=== PATIENT | male | born 1995 | race Caucasian/White ===

== ENCOUNTER 2022-08-18 12:18 | Emergency (ER) | payer BC ==
[2022-08-18] MEDS ORDERED: LIDOCAINE 1% 20 ML MDV ONE (13:10)
[2022-08-18] MEDS ORDERED: LORazepam 2 MG/ML VIAL ONE (14:22)
--- NOTE | 2022-08-18 15:01 | ER ---
Nurse's Notes [facility] Name: Tariq Michel Age: 27 yrs Sex: Male : 1995 Arrival Date: 08/18/2022 Time: 12:20 Bed 11 Private MD: Diagnosis: Cutaneous laceration of the right hand Presentation: 08/18 12:47 Chief complaint: Patient states: laceration to right hand, dressing noted to right aa5 hand. pt states "it was a piece of metal that I was throwing away and it got me". Coronavirus screen: At this time, the client does not indicate any symptoms associated with coronavirus-19. Ebola Screen: Patient denies travel to an Ebola-affected area in the 21 days before illness onset. Complicating Factors: There are no complicating factors for this patient. Initial Sepsis Screen: Does the patient meet any 2 criteria? No. Patient's initial sepsis screen is negative. Does the patient have a suspected source of infection? No. Patient's initial sepsis screen is negative. Risk Assessment: Do you want to hurt yourself or someone else? Patient reports no desire to harm self or others. Onset of symptoms was August 18, 2022. 12:47 Acuity: CHANO 4 aa5 12:47 Method Of Arrival: Ambulatory aa5 Historical: - Allergies: 12:48 No Known Allergies; aa5 - PMHx: 12:48 Asthma; aa5 - PSHx: 12:48 FB removed from throat; aa5 - Immunization history:: Last tetanus immunization: unknown. - Social history:: Smoking status: Patient denies any tobacco usage or history of. Vital Signs: 12:47 BP 132 / 80; Pulse 66; Resp 18 S; Temp 97.7(TE); Pulse Ox 99% on R/A; Weight 124.74 kg aa5 (R); Height 6 ft. 0 in. (182.88 cm) (R); 12:47 Body Mass Index 37.30 (124.74 kg, 182.88 cm) aa5 ED Course: 12:20 Patient arrived in ED. rg4 12:25 Kosta Diaz PA is PHCP. milo 12:25 Vinod Falk DO is Attending Physician. jmm 12:47 Arm band placed on. aa5 12:48 Triage completed. aa5 13:03 Temitope Hong, RN is Primary Nurse. iw Administered Medications: 14:15 CANCELLED (Physician Discretion): HYDROcodone-acetaminophen 5 mg-325 mg 1 tabs PO once iw 14:21 Drug: Ativan (LORazepam) 1 mg Route: IM; Site: left deltoid; iw 16:04 Drug: Doxycycline 100 mg Route: PO; iw 16:27 Drug: HYDROcodone-acetaminophen 5 mg-325 mg 1 tabs Route: PO; iw Outcome: 15:00 Discharge ordered by . milo 16:27 Patient left the ED. iw Signatures: Kosta Diaz PA PA jmm Williams, Irene, RN RN Beronica Zhu RN RN Karina Martel 4 Corrections: (The following items were deleted from the chart) 12:52 12:47 Pulse 66bpm; Resp 18bpm; Spontaneous; Pulse Ox 99% RA; Temp 97.7F Temporal; aa5 124.74 kg Reported; Height 6 ft. 0 in. Reported; BMI: 37.3; aa5
--- NOTE | 2022-08-18 15:01 | EDPHYS ---
[facility] Name: Tariq Michel Age: 27 yrs Sex: Male : 1995 Arrival Date: 08/18/2022 Time: 12:20 Bed 11 Private MD: ED Physician Vinod Falk Historical: - Allergies: 08/18 12:48 No Known Allergies; aa5 - PMHx: 12:48 Asthma; aa5 - PSHx: 12:48 FB removed from throat; aa5 - Immunization history:: Last tetanus immunization: unknown. - Social history:: Smoking status: Patient denies any tobacco usage or history of. Vital Signs: 12:47 BP 132 / 80; Pulse 66; Resp 18 S; Temp 97.7(TE); Pulse Ox 99% on R/A; Weight 124.74 kg aa5 (R); Height 6 ft. 0 in. (182.88 cm) (R); 12:47 Body Mass Index 37.30 (124.74 kg, 182.88 cm) aa5 Laceration: 14:57 Wound Repair of 5cm ( 2.0in ) subcutaneous laceration to right hand. Distal jmm neuro/vascular/tendon intact. Anesthesia: Local anesthetic administered with 8 mls of 1% lidocaine. Wound prep: Simple cleansing with hibiclenz by ia. Skin closed with 9 4-0 Prolene using simple sutures and sterile technique. Patient tolerated well. MDM: 12:38 Patient medically screened. m 14:58 Differential diagnosis: laceration of the hand. Data reviewed: vital signs, nurses jmm notes. Counseling: I had a detailed discussion with the patient and/or guardian regarding: the historical points, exam findings, and any diagnostic results supporting the discharge/admit diagnosis, the need for outpatient follow up, to return to the emergency department if symptoms worsen or persist or if there are any questions or concerns that arise at home. ED course: patient given wound infection return precautions. patient understood and agrees with the plan of care. . Administered Medications: 14:15 CANCELLED (Physician Discretion): HYDROcodone-acetaminophen 5 mg-325 mg 1 tabs PO once iw 14:21 Drug: Ativan (LORazepam) 1 mg Route: IM; Site: left deltoid; iw 16:04 Drug: Doxycycline 100 mg Route: PO; iw 16:27 Drug: HYDROcodone-acetaminophen 5 mg-325 mg 1 tabs Route: PO; iw Disposition Summary: 08/18/22 15:00 Discharge Ordered Location: Home [facility] Condition: Stable [facility] Diagnosis - Cutaneous laceration of the right hand [facility] Followup: jmm - With: Private Physician - When: 10 - 14 days - Reason: Recheck today's complaints, Continuance of care, Re-evaluation by your physician Discharge Instructions: - Discharge Summary Sheet [facility] - Laceration Care, Adult [facility] Forms: - Work release form [facility] - Medication Reconciliation Form [facility] - Thank You Letter [facility] - Antibiotic Education [facility] - Prescription Opioid Use [facility] Prescriptions: - Doxycycline Hyclate 100 mg Oral Tablet - take 1 tablet by ORAL route every 12 hours; 20 tablet; Refills: 0, Product [facility] Selection Permitted - Diclofenac Sodium 75 mg Oral Tablet Sustained Release - take 1 tablet by ORAL route 2 times per day; 30 tablet; Refills: 0, Product [facility] Selection Permitted Signatures: Kosta Diaz PA PA [facility] Temitope Hong RN RN Beronica Pressley RN RN aa5 Corrections: (The following items were deleted from the chart) 14:15 13:55 HYDROcodone-acetaminophen 5 mg-325 mg 1 tabs PO once ordered. [facility]
[2022-08-18] MEDS ORDERED: TDAP (DIPHTH,PERTUSS(ACELL),TET VAC) 0.5 ML VIAL IMVAC ONE (15:51)
[2022-08-18] MEDS ORDERED: DOXYCYCLINE 100 MG CAP PO ONE (15:51)
[2022-08-18] MEDS ORDERED: HYDROCODONE/APAP 5/325 MG TAB ONE (16:21)
== END 2022-08-18 16:27 | disposition home or self-care (01) ==
LOC: ER 12:18
PROC: 0HQFXZZ Repair Right Hand Skin, External Approach (ICD-10-PCS; principal; 2022-08-18)
DX: S61.411A Laceration without foreign body of right hand, initial encounter (principal)
CPT/HCPCS: 96372; 99282; 12002; J2001